=== PATIENT | male | born 1960 | race Caucasian/White ===

== ENCOUNTER 2018-12-28 12:15 | Emergency (ER) | payer MEDICAID ==
[~2018-12-28] VITALS: Ht 180.3 cm; Wt 82.0 kg
[2018-12-28 13:14] LABS: CLARITY URINE CLEAR (CLEAR); COLOR URINE YELLOW (YELLOW); KETONES URINE NEGATIVE (NEGATIVE); LEUKOCYTE ESTERASE URINE NEGATIVE (NEGATIVE); NITRITE URINE NEGATIVE (NEGATIVE); OCCULT BLOOD URINE NEGATIVE (NEGATIVE); PH URINE 5.5 (4.5-8.0); PROTEIN URINE 3+ (NEGATIVE); SPECIFIC GRAVITY URINE 1.026 (1.005-1.030)
[2018-12-28 13:22] LABS: BASOPHILS % 0.8 % (0.0-2.0); EOSINOPHILS % 1.8 % (0.0-5.0); HEMATOCRIT. 44.1 % (42.0-52.0); HEMOGLOBIN. 14.8 g/dL (14.0-18.0); LYMPHOCYTES % 20.9 % (20.0-50.0); MEAN CORPUSCULAR HEMOGLOBIN 31.8 pg (28.0-32.0); MEAN CORPUSCULAR VOLUME 95.1 fL (80.0-94.0); MEAN PLATELET VOLUME 8.3 fl (7.4-10.4); NEUTROPHILS % 66.5 % (40.0-76.0); PLATELET 229 x1000/uL (130-400); RED BLOOD CELL COUNT 4.64 mill/uL (4.7-6.1); RED CELL DISTRIBUTION WIDTH 14.7 % (11.6-14.6)
[2018-12-28 13:25] LABS: CHLORIDE 109 mEq/L (98-107)
[2018-12-28 13:27] LABS: INR 1.3; PARTIAL THROMBOPLASTIN TIME 31.6 sec (23.4-31.0); PROTHROMBIN TIME 13.3 sec (9.6-11.0)
[2018-12-28] MEDS ORDERED: FUROSEMIDE 20MG/2ML VIAL IVP ONE (15:00)
[2018-12-28 17:45] VITALS: BP 124/69
[2018-12-28] MEDS ORDERED: ENOXAPARIN 40MG/0.4ML SYR SUBCUT NR (17:45)
[2018-12-28] MEDS ORDERED: HYDROCODONE/ACETAMINOPHEN 5/325MG TABLET PO PRN (17:45)
[2018-12-28] MEDS ORDERED: DOCUSATE SODIUM 100MG CAPSULE PO PRN (17:45)
[2018-12-28] MEDS ORDERED: ACETAMINOPHEN 325MG TABLET PO PRN (17:45)
[2018-12-28] MEDS ORDERED: CLONIDINE 0.1MG TABLET PO PRN (17:45)
[2018-12-28] MEDS ORDERED: MORPHINE SULFATE 2 MG/ML CPJ (NOT FOR IM USE) IV PRN (17:45)
[2018-12-28] MEDS ORDERED: ONDANSETRON HCL 4MG/2ML INJ IV PRN (17:45)
[2018-12-28] MEDS ORDERED: IPRATROPIUM/ALBUTEROL 0.5-3(2.5)MG/3ML NEB NEB PRN (17:45)
[2018-12-28] MEDS ORDERED: MAGNESIUM/ALUMINUM HYDROXIDE/SIMETHICONE 30ML UDC PO PRN (17:45)
[2018-12-28] MEDS ORDERED: GUAIFENESIN 200MG/10ML SUGAR FREE UDC PO PRN (17:45)
[2018-12-28] MEDS ORDERED: FUROSEMIDE 40MG/4ML VIAL IV NR (18:30)
[2018-12-29] MEDS ORDERED: ASPIRIN 81MG EC TABLET PO SCH (09:00)
[2018-12-29] MEDS ORDERED: METOPROLOL TARTRATE 25MG TABLET PO SCH (09:00)
[2018-12-29] MEDS ORDERED: FUROSEMIDE 40MG/4ML VIAL IV SCH (09:00)
== END 2018-12-28 19:00 | disposition left against medical advice (07) ==
LOC: ER 12:15 → EDBEDREQ 15:46 → ER 19:00 → ENRESERV 20:25 → CANRESERV 20:25 → CANBEDREQ 12-29 02:33
DX: I50.9 Heart failure, unspecified (principal); F12.10 Cannabis abuse, uncomplicated; F17.210 Nicotine dependence, cigarettes, uncomplicated; Z71.6 Tobacco abuse counseling
CPT/HCPCS: 36415; 71045; 80053; 81003; 83605; 83690; 83880; 84484; 85025; 85610; 85730; 93005; 96374; 99284; 99406; J1940; J1650

== ENCOUNTER 2019-01-10 13:01 | Inpatient (IN) | payer MEDICAID, OTHER ==
[~2019-01-10] VITALS: Ht 172.7 cm; Wt 81.6 kg
[2019-01-10 14:03] LABS: HEMATOCRIT. 46.5 % (42.0-52.0); HEMOGLOBIN. 15.1 g/dL (14.0-18.0); MEAN CORPUSCULAR HEMOGLOBIN 30.7 pg (28.0-32.0); MEAN CORPUSCULAR VOLUME 94.4 fL (80.0-94.0); MEAN PLATELET VOLUME 8.1 fl (7.4-10.4); PLATELET 263 x1000/uL (130-400); RED BLOOD CELL COUNT 4.93 mill/uL (4.7-6.1); RED CELL DISTRIBUTION WIDTH 14.6 % (11.6-14.6)
[2019-01-10 14:04] LABS: CHLORIDE 106 mEq/L (98-107)
[2019-01-10 14:44] LABS: PLATELET ESTIMATE NORMAL
[2019-01-10] MEDS ORDERED: CEFEPIME 1,000 MG in DEXTROSE 5% WATER 50 ML IV STA (15:05)
[2019-01-10] MEDS ORDERED: VANCOMYCIN 1 G PREMIX 200 ML IV STA (15:05)
[2019-01-10] MEDS ORDERED: FUROSEMIDE 40MG/4ML VIAL IVP ONE (15:15)
[2019-01-10] MEDS ORDERED: ASPIRIN 81MG TABLET PO NR (16:00)
[2019-01-10 16:54] LABS: CLARITY URINE CLEAR (CLEAR); COLOR URINE YELLOW (YELLOW); KETONES URINE NEGATIVE (NEGATIVE); LEUKOCYTE ESTERASE URINE NEGATIVE (NEGATIVE); NITRITE URINE NEGATIVE (NEGATIVE); OCCULT BLOOD URINE NEGATIVE (NEGATIVE); PROTEIN URINE NEGATIVE (NEGATIVE); SPECIFIC GRAVITY URINE 1.024 (1.005-1.030); UROBILINOGEN URINE 0.2 E.U./dL (0.2-1.0)
[2019-01-10 17:09] LABS: OPIATES URINE SCREEN NEGATIVE (NEGATIVE)
[2019-01-10 17:10] LABS: *AMPHETAMINES SCREEN URINE PRESUMTIVE POSITIVE (NEGATIVE); *BARBITURATES SCREEN URINE NEGATIVE (NEGATIVE); *BENZODIAZEPINES SCREEN URINE NEGATIVE (NEGATIVE); *COCAINE SCREEN URINE NEGATIVE (NEGATIVE); CANNABINOID URINE SCREEN NEGATIVE (NEGATIVE); METHADONE URINE SCREEN NEGATIVE (NEGATIVE); PHENCYCLIDINE URINE SCREEN NEGATIVE (NEGATIVE)
[2019-01-10 17:37] LABS: HEPATITIS B SURFACE ANTIGEN NEGATIVE
[2019-01-10 18:07] LABS: HEPATITIS A AB IGM NEGATIVE (NEGATIVE)
[2019-01-10] MEDS ORDERED: PIPERACILLIN/TAZOBACTAM 3.375 G in DEXT 5% WATER 100 ML IV NR (18:45)
[2019-01-10] MEDS ORDERED: FUROSEMIDE 40MG/4ML VIAL IVP NR (18:45)
[2019-01-10] MEDS ORDERED: PIPERACILLIN/TAZ 3.375G PREMIX 50 ML IV NR (19:36)
[2019-01-10] MEDS ORDERED: IOHEXOL-350 100 ML BOTTLE ONE (20:46)
[2019-01-10 21:40] VITALS: BP 124/76
[2019-01-11] VITALS (16 sets, daily range): BP systolic 100–132; BP diastolic 49–90
[2019-01-11] MEDS ORDERED: ACETAMINOPHEN 650MG/20.3ML UDC PO PRN (02:30)
[2019-01-11] MEDS ORDERED: MORPHINE SULFATE 2 MG/ML CPJ (NOT FOR IM USE) IV PRN (02:45)
[2019-01-11] MEDS ORDERED: ACETAMINOPHEN 325MG TABLET PO PRN (02:45)
[2019-01-11] MEDS: PIPERACILLIN/TAZOBACTAM 3.375 G in DEXT 5% WATER 100 ML IV SCH ×4 (03:27→22:34)
[2019-01-11] MEDS ORDERED: VANCOMYCIN 750 MG PREMIX 150 ML IV SCH (04:00)
[2019-01-11] MEDS: FUROSEMIDE 40MG/4ML VIAL IVP SCH ×2 (06:07→17:58)
[2019-01-11 07:14] LABS: HEMATOCRIT. 42.1 % (42.0-52.0); HEMOGLOBIN. 13.9 g/dL (14.0-18.0); MEAN CORPUSCULAR HEMOGLOBIN 30.7 pg (28.0-32.0); MEAN CORPUSCULAR VOLUME 92.9 fL (80.0-94.0); MEAN PLATELET VOLUME 8.2 fl (7.4-10.4); PLATELET 207 x1000/uL (130-400); RED BLOOD CELL COUNT 4.53 mill/uL (4.7-6.1); RED CELL DISTRIBUTION WIDTH 14.5 % (11.6-14.6)
[2019-01-11 07:30] LABS: CHLORIDE 104 mEq/L (98-107)
[2019-01-11] MEDS: ENOXAPARIN 30MG/0.3ML SYR SUBCUT SCH ×2 (08:40→21:07)
[2019-01-11] MEDS ORDERED: POTASSIUM CHLORIDE 20MEQ TABLET SR PO NR (09:00)
[2019-01-11] MEDS ORDERED: PNEUMOCOCCAL 23-VAL P-SAC VAC 0.5 ML IM ONE (12:00)
[2019-01-11] MEDS ORDERED: INFLUENZA VIRUS VACCINE(AFLURIA) 0.5ML SYR IM ONE (12:00)
[2019-01-11] MEDS: DOCUSATE SODIUM 250MG CAPSULE PO SCH (12:30)
[2019-01-11] MEDS ORDERED: FUROSEMIDE 40MG/4ML VIAL IVP NR (14:30)
[2019-01-11] MEDS: LISINOPRIL 10MG TABLET PO SCH (15:13)
[2019-01-11] MEDS: VANCOMYCIN 1 G PREMIX 200 ML IV SCH (17:57)
[2019-01-11 19:59] LABS: PLATELET ESTIMATE NORMAL
[2019-01-11] MEDS: CARVEDILOL 3.125 MG TABLET PO SCH (21:06)
[2019-01-12] VITALS (12 sets, daily range): BP systolic 98–120; BP diastolic 44–99
[2019-01-12 04:13] LABS: CHLORIDE 102 mEq/L (98-107)
[2019-01-12 04:24] LABS: HEMATOCRIT. 45.1 % (42.0-52.0); HEMOGLOBIN. 14.8 g/dL (14.0-18.0); MEAN CORPUSCULAR HEMOGLOBIN 30.9 pg (28.0-32.0); MEAN CORPUSCULAR VOLUME 94.1 fL (80.0-94.0); MEAN PLATELET VOLUME 8.2 fl (7.4-10.4); PLATELET 195 x1000/uL (130-400); RED BLOOD CELL COUNT 4.79 mill/uL (4.7-6.1); RED CELL DISTRIBUTION WIDTH 14.6 % (11.6-14.6)
[2019-01-12] MEDS: PIPERACILLIN/TAZOBACTAM 3.375 G in DEXT 5% WATER 100 ML IV SCH ×4 (04:40→23:24)
[2019-01-12] MEDS: VANCOMYCIN 1 G PREMIX 200 ML IV SCH (05:46)
[2019-01-12] MEDS: ENOXAPARIN 30MG/0.3ML SYR SUBCUT SCH ×2 (09:04→21:12)
[2019-01-12] MEDS: POTASSIUM CHLORIDE 20MEQ TABLET SR PO SCH (09:04)
[2019-01-12] MEDS: FUROSEMIDE 40MG/4ML VIAL IVP SCH ×2 (09:04→16:57)
[2019-01-12] MEDS: LISINOPRIL 10MG TABLET PO SCH (09:05)
[2019-01-12] MEDS: CARVEDILOL 3.125 MG TABLET PO SCH ×2 (09:05→21:00)
[2019-01-12] MEDS: DOCUSATE SODIUM 250MG CAPSULE PO SCH (09:05)
[2019-01-12 12:58] LABS: PLATELET ESTIMATE NORMAL
[2019-01-12] MEDS: VANCOMYCIN 1250MG in DEXTROSE 5% WATER 250ML IV SCH (21:12)
[2019-01-13] VITALS (12 sets, daily range): BP systolic 98–140; BP diastolic 45–94
[2019-01-13] MEDS: PIPERACILLIN/TAZOBACTAM 3.375 G in DEXT 5% WATER 100 ML IV SCH ×4 (04:10→22:07)
[2019-01-13 06:43] LABS: BASOPHILS % 0.4 % (0.0-2.0); EOSINOPHILS % 2.5 % (0.0-5.0); HEMATOCRIT. 43.5 % (42.0-52.0); HEMOGLOBIN. 14.4 g/dL (14.0-18.0); LYMPHOCYTES % 7.2 % (20.0-50.0); MEAN CORPUSCULAR HEMOGLOBIN 30.9 pg (28.0-32.0); MEAN CORPUSCULAR VOLUME 93.3 fL (80.0-94.0); MEAN PLATELET VOLUME 8.2 fl (7.4-10.4); MONOCYTES % 9.9 % (2.0-8.0); PLATELET 214 x1000/uL (130-400); RED BLOOD CELL COUNT 4.66 mill/uL (4.7-6.1); RED CELL DISTRIBUTION WIDTH 14.7 % (11.6-14.6)
[2019-01-13 07:01] LABS: CHLORIDE 103 mEq/L (98-107)
[2019-01-13] MEDS: VANCOMYCIN 1250MG in DEXTROSE 5% WATER 250ML IV SCH ×2 (08:50→20:45)
[2019-01-13] MEDS: FUROSEMIDE 40MG/4ML VIAL IVP SCH ×2 (08:50→17:04)
[2019-01-13] MEDS: POTASSIUM CHLORIDE 20MEQ TABLET SR PO SCH (08:50)
[2019-01-13] MEDS: CARVEDILOL 3.125 MG TABLET PO SCH ×2 (08:51→20:45)
[2019-01-13] MEDS: DOCUSATE SODIUM 250MG CAPSULE PO SCH (08:51)
[2019-01-13] MEDS: LISINOPRIL 10MG TABLET PO SCH (08:51)
[2019-01-13] MEDS: ENOXAPARIN 30MG/0.3ML SYR SUBCUT SCH ×2 (09:00→20:37)
[2019-01-13] MEDS ORDERED: POTASSIUM CHLORIDE 20MEQ TABLET SR PO NR (14:30)
[2019-01-14] VITALS (13 sets, daily range): BP systolic 84–149; BP diastolic 27–95
[2019-01-14] MEDS: PIPERACILLIN/TAZOBACTAM 3.375 G in DEXT 5% WATER 100 ML IV SCH ×4 (04:12→21:40)
[2019-01-14] MEDS: FUROSEMIDE 40MG/4ML VIAL IVP SCH ×2 (06:35→17:09)
[2019-01-14 07:23] LABS: CHLORIDE 106 mEq/L (98-107)
[2019-01-14] MEDS: DOCUSATE SODIUM 250MG CAPSULE PO SCH (09:00)
[2019-01-14] MEDS: CARVEDILOL 3.125 MG TABLET PO SCH ×2 (09:03→21:39)
[2019-01-14] MEDS: POTASSIUM CHLORIDE 20MEQ TABLET SR PO SCH (09:03)
[2019-01-14] MEDS: LISINOPRIL 10MG TABLET PO SCH (09:03)
[2019-01-14] MEDS: ENOXAPARIN 30MG/0.3ML SYR SUBCUT SCH ×2 (09:04→21:39)
[2019-01-14] MEDS: VANCOMYCIN 1250MG in DEXTROSE 5% WATER 250ML IV SCH ×2 (09:58→21:38)
[2019-01-14] MEDS: ZOLPIDEM TARTRATE 5MG TABLET PO PRN (21:39)
[2019-01-15 00:47] VITALS: BP 99/64
[2019-01-15 04:00] VITALS: BP 111/76
[2019-01-15] MEDS: PIPERACILLIN/TAZOBACTAM 3.375 G in DEXT 5% WATER 100 ML IV SCH ×4 (04:01→21:45)
[2019-01-15 06:04] LABS: BASOPHILS % 0.4 % (0.0-2.0); EOSINOPHILS % 2.7 % (0.0-5.0); HEMATOCRIT. 46.6 % (42.0-52.0); HEMOGLOBIN. 15.5 g/dL (14.0-18.0); LYMPHOCYTES % 7.4 % (20.0-50.0); MEAN CORPUSCULAR VOLUME 93.4 fL (80.0-94.0); MEAN PLATELET VOLUME 8.5 fl (7.4-10.4); MONOCYTES % 11.6 % (2.0-8.0); NEUTROPHILS % 77.9 % (40.0-76.0); PLATELET 239 x1000/uL (130-400); RED BLOOD CELL COUNT 4.99 mill/uL (4.7-6.1); RED CELL DISTRIBUTION WIDTH 14.6 % (11.6-14.6)
[2019-01-15 06:35] LABS: CHLORIDE 105 mEq/L (98-107)
[2019-01-15 06:44] LABS: PHOSPHORUS 2.7 mg/dL (2.5-4.9)
[2019-01-15] MEDS: FUROSEMIDE 40MG/4ML VIAL IVP SCH ×2 (06:56→16:29)
[2019-01-15 07:59] VITALS: BP 126/88
[2019-01-15] MEDS: VANCOMYCIN 1250MG in DEXTROSE 5% WATER 250ML IV SCH ×2 (08:10→20:32)
[2019-01-15] MEDS: POTASSIUM CHLORIDE 20MEQ TABLET SR PO SCH (08:10)
[2019-01-15] MEDS: ENOXAPARIN 30MG/0.3ML SYR SUBCUT SCH (08:11)
[2019-01-15] MEDS: LISINOPRIL 10MG TABLET PO SCH (08:11)
[2019-01-15] MEDS: DOCUSATE SODIUM 250MG CAPSULE PO SCH (08:11)
[2019-01-15] MEDS: CARVEDILOL 3.125 MG TABLET PO SCH ×2 (08:25→20:32)
[2019-01-15 12:00] VITALS: BP 91/63
[2019-01-15 16:00] VITALS: BP 95/68
[2019-01-15 20:00] VITALS: BP 101/67
[2019-01-15] MEDS: ZOLPIDEM TARTRATE 5MG TABLET PO PRN (20:37)
[2019-01-16] VITALS: BP 105/80
[2019-01-16] MEDS: PIPERACILLIN/TAZOBACTAM 3.375 G in DEXT 5% WATER 100 ML IV SCH ×2 (03:39→10:29)
[2019-01-16 04:00] VITALS: BP 106/76
[2019-01-16] MEDS: FUROSEMIDE 40MG/4ML VIAL IVP SCH (06:21)
[2019-01-16 06:47] LABS: CHLORIDE 106 mEq/L (98-107)
[2019-01-16 08:00] VITALS: BP 108/72
[2019-01-16] MEDS: VANCOMYCIN 1250MG in DEXTROSE 5% WATER 250ML IV SCH (08:17)
[2019-01-16] MEDS: LISINOPRIL 10MG TABLET PO SCH (09:00)
[2019-01-16] MEDS ORDERED: ENOXAPARIN 40MG/0.4ML SYR SUBCUT SCH (09:00)
[2019-01-16] MEDS: CARVEDILOL 3.125 MG TABLET PO SCH (09:00)
[2019-01-16] MEDS: POTASSIUM CHLORIDE 20MEQ TABLET SR PO SCH (09:05)
[2019-01-16] MEDS: DOCUSATE SODIUM 250MG CAPSULE PO SCH (09:05)
[2019-01-16 12:00] VITALS: BP 88/58
[2019-01-16 13:25] VITALS: BP 113/66
[2019-01-16 16:00] VITALS: BP 90/61
== END 2019-01-16 16:48 | disposition home or self-care (01) | DRG 720 ==
LOC: ER 13:01 → 3WST 16:04 → EDBEDREQ 16:07 → ENRESERV 19:14 → 5WST 01-14 14:24
PROVIDERS: ADMIT Internal Medicine; ATTEND Internal Medicine
DX: A41.9 Sepsis, unspecified organism (principal); I50.41 Acute combined systolic (congestive) and diastolic (congestive) heart failure; J18.9 Pneumonia, unspecified organism; I42.9 Cardiomyopathy, unspecified; I11.0 Hypertensive heart disease with heart failure; E66.01 Morbid (severe) obesity due to excess calories; G62.9 Polyneuropathy, unspecified; K76.1 Chronic passive congestion of liver; F10.10 Alcohol abuse, uncomplicated; R74.0 Nonspecific elevation of levels of transaminase and lactic acid dehydrogenase [LDH]; F15.10 Other stimulant abuse, uncomplicated; F12.90 Cannabis use, unspecified, uncomplicated; L03.115 Cellulitis of right lower limb; F17.210 Nicotine dependence, cigarettes, uncomplicated; L03.116 Cellulitis of left lower limb; S90.821A Blister (nonthermal), right foot, initial encounter; S90.822A Blister (nonthermal), left foot, initial encounter; X58.XXXA Exposure to other specified factors, initial encounter; Y93.89 Activity, other specified; Y92.89 Other specified places as the place of occurrence of the external cause; Y99.8 Other external cause status; Z71.51 Drug abuse counseling and surveillance of drug abuser; Z88.4 Allergy status to anesthetic agent; Z68.27 Body mass index [BMI] 27.0-27.9, adult; Z71.6 Tobacco abuse counseling; Z71.3 Dietary counseling and surveillance
CPT/HCPCS: 36415; 71045; 71275; 76700; 80048; 80061; 80202; 80305; 81003; 83036; 83605; 83735; 83880; 84100; 84145; 84443; 84484; 85379; 86705; 86709; 86803; 87340; 90686; 90732; 93005; 93306; 93970; 97162; 99291; J0692; J1650; J1940; J2543; J3370; J7060; Q9967

== ENCOUNTER 2019-04-07 10:58 | Inpatient (IN) | payer SELFPAY ==
[~2019-04-07] VITALS: Ht 170.2 cm; Wt 95.8 kg
[2019-04-07 12:00] LABS: BASOPHILS % 0.5 % (0.0-2.0); EOSINOPHILS % 0.1 % (0.0-5.0); HEMATOCRIT. 44.7 % (42.0-52.0); HEMOGLOBIN. 14.6 g/dL (14.0-18.0); LYMPHOCYTES % 14.1 % (20.0-50.0); MEAN CORPUSCULAR HEMOGLOBIN 29.6 pg (28.0-32.0); MEAN CORPUSCULAR VOLUME 90.8 fL (80.0-94.0); MEAN PLATELET VOLUME 8.1 fl (7.4-10.4); MONOCYTES % 11.7 % (2.0-8.0); NEUTROPHILS % 73.6 % (40.0-76.0); PLATELET 221 x1000/uL (130-400); RED BLOOD CELL COUNT 4.92 mill/uL (4.7-6.1); RED CELL DISTRIBUTION WIDTH 17.7 % (11.6-14.6)
[2019-04-07 12:09] LABS: CHLORIDE 111 mEq/L (98-107)
[2019-04-07 13:07] LABS: BG BASE EXCESS -6.8 mmol/L (-2.0-2.0); BG BILEVEL POS AIRWAY PRESSURE 18/5; BG CARBOXYHEMOGLOBIN 1.1 % (0.5-1.5); BG DEOXYHEMOGLOBIN 0.1 % (0.0-5.0); BG FRACTION INSPIRED OXYGEN 100; BG HCO3 ACT 18.5 mmol/L (22.0-26.0); BG METHEMOGLOBIN 0.4 % (0.0-1.5); BG OXYGEN SATURATION 99.9 % (92.0-98.5); BG OXYHEMOGLOBIN 98.4 % (94.0-97.0); BG PCO2 36.6 mmHg (35.0-45.0); BG PH 7.322 (7.350-7.450); BG SAMPLE SITE RIGHT RADIAL; BG TOTAL HEMOGLOBIN 15.2 g/dL (12.0-18.0); BG VENT MODE MASK - BIPAP; BG VENT RATE 16 set
[2019-04-07] MEDS ORDERED: FUROSEMIDE 40MG/4ML VIAL IV ONE (13:15)
[2019-04-07] MEDS ORDERED: ASPIRIN 81MG TABLET PO ONE (13:15)
[2019-04-07] MEDS ORDERED: ONDANSETRON HCL 4MG/2ML INJ IV PRN (19:45)
[2019-04-07] MEDS ORDERED: DIPHENHYDRAMINE 50MG/ML VIAL IV PRN (19:45)
[2019-04-07] MEDS ORDERED: GUAIFENESIN 200MG/10ML SUGAR FREE UDC PO PRN (19:45)
[2019-04-07] MEDS ORDERED: IPRATROPIUM/ALBUTEROL 0.5-3(2.5)MG/3ML NEB NEB PRN (19:45)
[2019-04-07] MEDS ORDERED: CLONIDINE 0.1MG TABLET PO PRN (19:45)
[2019-04-07] MEDS ORDERED: ENOXAPARIN 40MG/0.4ML SYR SUBCUT SCH (19:45)
[2019-04-07 20:00] VITALS: BP 135/92
[2019-04-07] MEDS ORDERED: THIAMINE HCL 100 MG in SODIUM CHLORIDE 0.9% 49 ML IV NR (21:00)
[2019-04-07 22:00] VITALS: BP 141/91
[2019-04-07] MEDS: SODIUM CHLORIDE 0.9% INJ 3ML FLUSH IVF SCH (22:00)
[2019-04-07 22:01] VITALS: BP 153/76
[2019-04-07] MEDS: FUROSEMIDE 40MG/4ML VIAL IVP SCH (22:27)
[2019-04-07] MEDS: FAMOTIDINE 20MG TABLET PO SCH (22:28)
[2019-04-07] MEDS: ENOXAPARIN 30MG/0.3ML SYR SUBCUT SCH (22:28)
[2019-04-08] VITALS (13 sets, daily range): BP systolic 99–131; BP diastolic 56–84
[2019-04-08 00:01] LABS: *AMPHETAMINES SCREEN URINE NEGATIVE (NEGATIVE); *BARBITURATES SCREEN URINE NEGATIVE (NEGATIVE); *BENZODIAZEPINES SCREEN URINE NEGATIVE (NEGATIVE); *COCAINE SCREEN URINE NEGATIVE (NEGATIVE); METHADONE URINE SCREEN NEGATIVE (NEGATIVE)
[2019-04-08 00:03] LABS: CANNABINOID URINE SCREEN NEGATIVE (NEGATIVE); OPIATES URINE SCREEN NEGATIVE (NEGATIVE); PHENCYCLIDINE URINE SCREEN NEGATIVE (NEGATIVE)
[2019-04-08] MEDS: IPRATROPIUM/ALBUTEROL 0.5-3(2.5)MG/3ML NEB HHN SCH ×5 (00:57→21:13)
[2019-04-08] MEDS: SODIUM CHLORIDE 0.9% INJ 3ML FLUSH IVF SCH ×3 (05:52→21:55)
[2019-04-08 07:06] LABS: BASOPHILS % 0.6 % (0.0-2.0); EOSINOPHILS % 0.7 % (0.0-5.0); HEMATOCRIT. 40.4 % (42.0-52.0); HEMOGLOBIN. 13.2 g/dL (14.0-18.0); LYMPHOCYTES % 13.9 % (20.0-50.0); MEAN CORPUSCULAR HEMOGLOBIN 29.7 pg (28.0-32.0); MEAN CORPUSCULAR VOLUME 90.6 fL (80.0-94.0); MEAN PLATELET VOLUME 8.2 fl (7.4-10.4); MONOCYTES % 13.1 % (2.0-8.0); NEUTROPHILS % 71.7 % (40.0-76.0); PLATELET 212 x1000/uL (130-400); RED BLOOD CELL COUNT 4.46 mill/uL (4.7-6.1); RED CELL DISTRIBUTION WIDTH 17.6 % (11.6-14.6)
[2019-04-08 07:10] LABS: CHLORIDE 108 mEq/L (98-107)
[2019-04-08] MEDS: ENOXAPARIN 30MG/0.3ML SYR SUBCUT SCH ×2 (07:25→21:55)
[2019-04-08] MEDS: FUROSEMIDE 40MG/4ML VIAL IVP SCH ×2 (07:25→16:49)
[2019-04-08] MEDS: CARVEDILOL 3.125 MG TABLET PO SCH ×2 (07:26→21:00)
[2019-04-08 07:34] LABS: PHOSPHORUS 4.3 mg/dL (2.5-4.9)
[2019-04-08] MEDS: LISINOPRIL 10MG TABLET PO SCH (09:00)
[2019-04-08] MEDS: ACETAMINOPHEN 325MG TABLET PO PRN ×2 (10:27→17:45)
[2019-04-08] MEDS: POTASSIUM CHLORIDE 20MEQ TABLET SR PO SCH (13:15)
[2019-04-08] MEDS ORDERED: MAGNESIUM 2 G PREMIX 50 ML IV SCH (14:00)
[2019-04-08] MEDS ORDERED: VANCOMYCIN 2,000 MG in DEXT 5% WATER 500 ML IV SCH (15:00)
[2019-04-08] MEDS: HYDROCODONE/APAP 7.5/325MG 1 TAB TABLET PO PRN (18:32)
[2019-04-08] MEDS: FAMOTIDINE 20MG TABLET PO SCH (21:54)
[2019-04-09] VITALS (13 sets, daily range): BP systolic 96–113; BP diastolic 58–83
[2019-04-09] MEDS: IPRATROPIUM/ALBUTEROL 0.5-3(2.5)MG/3ML NEB HHN SCH ×3 (01:06→16:56)
[2019-04-09] MEDS: HYDROCODONE/APAP 7.5/325MG 1 TAB TABLET PO PRN (06:07)
[2019-04-09] MEDS: VANCOMYCIN 1250MG in DEXTROSE 5% WATER 250ML IV SCH ×2 (06:08→23:48)
[2019-04-09] MEDS: SODIUM CHLORIDE 0.9% INJ 3ML FLUSH IVF SCH ×3 (06:09→20:49)
[2019-04-09] MEDS: FUROSEMIDE 40MG/4ML VIAL IVP SCH ×3 (06:20→20:56)
[2019-04-09] MEDS: POTASSIUM CHLORIDE 20MEQ TABLET SR PO SCH ×2 (08:12→16:11)
[2019-04-09] MEDS: ENOXAPARIN 30MG/0.3ML SYR SUBCUT SCH ×2 (08:13→20:49)
[2019-04-09] MEDS: CARVEDILOL 3.125 MG TABLET PO SCH ×2 (08:13→20:47)
[2019-04-09] MEDS: LISINOPRIL 10MG TABLET PO SCH (08:13)
[2019-04-09 08:50] LABS: BASOPHILS % 0.6 % (0.0-2.0); EOSINOPHILS % 4.5 % (0.0-5.0); HEMATOCRIT. 40.3 % (42.0-52.0); HEMOGLOBIN. 13.3 g/dL (14.0-18.0); LYMPHOCYTES % 10.6 % (20.0-50.0); MEAN CORPUSCULAR HEMOGLOBIN 29.7 pg (28.0-32.0); MEAN CORPUSCULAR VOLUME 90.1 fL (80.0-94.0); MEAN PLATELET VOLUME 8.1 fl (7.4-10.4); MONOCYTES % 8.1 % (2.0-8.0); NEUTROPHILS % 76.2 % (40.0-76.0); PLATELET 194 x1000/uL (130-400); RED BLOOD CELL COUNT 4.48 mill/uL (4.7-6.1); RED CELL DISTRIBUTION WIDTH 17.5 % (11.6-14.6)
[2019-04-09 09:07] LABS: PHOSPHORUS 2.9 mg/dL (2.5-4.9)
[2019-04-09] MEDS ORDERED: TRAMADOL 50MG TABLET PO PRN (10:00)
[2019-04-09] MEDS ORDERED: MAGNESIUM 1 G PREMIX 100 ML IV SCH (12:00)
[2019-04-09] MEDS: FAMOTIDINE 40MG TABLET PO SCH (20:48)
[2019-04-10] VITALS (10 sets, daily range): BP systolic 89–139; BP diastolic 47–87
[2019-04-10] MEDS: IPRATROPIUM/ALBUTEROL 0.5-3(2.5)MG/3ML NEB HHN SCH ×4 (02:20→20:37)
[2019-04-10] MEDS: ACETAMINOPHEN 325MG TABLET PO PRN (02:45)
[2019-04-10] MEDS: FUROSEMIDE 40MG/4ML VIAL IVP SCH ×2 (06:19→17:58)
[2019-04-10] MEDS: SODIUM CHLORIDE 0.9% INJ 3ML FLUSH IVF SCH ×3 (06:19→20:39)
[2019-04-10 07:37] LABS: CHLORIDE 101 mEq/L (98-107)
[2019-04-10 07:47] LABS: PHOSPHORUS 2.4 mg/dL (2.5-4.9)
[2019-04-10] MEDS: POTASSIUM CHLORIDE 20MEQ TABLET SR PO SCH ×2 (09:51→17:58)
[2019-04-10] MEDS: CARVEDILOL 3.125 MG TABLET PO SCH ×2 (09:52→20:44)
[2019-04-10] MEDS: LISINOPRIL 10MG TABLET PO SCH (09:52)
[2019-04-10] MEDS: ENOXAPARIN 30MG/0.3ML SYR SUBCUT SCH ×2 (09:53→20:39)
[2019-04-10] MEDS ORDERED: POTASSIUM PHOS,M-BASIC-D-BASIC 15 MMOL in DEXT 5% WATER 245 ML IV SCH (13:00)
[2019-04-10] MEDS: KETOROLAC 30MG/ML VIAL IV PRN ×2 (14:46→22:20)
[2019-04-10] MEDS: VANCOMYCIN 1250MG in DEXTROSE 5% WATER 250ML IV SCH (17:58)
[2019-04-10] MEDS: FAMOTIDINE 40MG TABLET PO SCH (20:36)
[2019-04-11] VITALS (8 sets, daily range): BP systolic 97–129; BP diastolic 54–86
[2019-04-11] MEDS: TEMAZEPAM 15MG CAPSULE PO PRN ×2 (01:20→01:38)
[2019-04-11] MEDS: IPRATROPIUM/ALBUTEROL 0.5-3(2.5)MG/3ML NEB HHN SCH ×3 (01:55→13:10)
[2019-04-11 05:51] LABS: CHLORIDE 102 mEq/L (98-107)
[2019-04-11] MEDS: POTASSIUM CHLORIDE 20MEQ TABLET SR PO SCH (09:22)
[2019-04-11] MEDS: FUROSEMIDE 40MG/4ML VIAL IVP SCH (09:22)
[2019-04-11] MEDS: CARVEDILOL 3.125 MG TABLET PO SCH (09:22)
[2019-04-11] MEDS: ENOXAPARIN 30MG/0.3ML SYR SUBCUT SCH (09:23)
[2019-04-11] MEDS: LISINOPRIL 10MG TABLET PO SCH (09:23)
[2019-04-11] MEDS: SODIUM CHLORIDE 0.9% INJ 3ML FLUSH IVF SCH (09:24)
[2019-04-11] MEDS ORDERED: VANCOMYCIN 1 G PREMIX 200 ML IV SCH (14:00)
[2019-04-11] MEDS ORDERED: CARVEDILOL 6.25 MG TABLET PO SCH (21:00)
== END 2019-04-11 15:12 | disposition home or self-care (01) | DRG 194 ==
LOC: ER 10:58 → EDBEDREQ 13:18 → EDBEDREQSVC 13:53 → ENRESERV 18:00 → 3WST 19:07
PROVIDERS: ADMIT Internal Medicine; ATTEND Internal Medicine
PROC: 5A09357 Assistance with Respiratory Ventilation, Less than 24 Consecutive Hours, Continuous Positive Airway Pressure (ICD-10-PCS; principal; 2019-04-07)
DX: I11.0 Hypertensive heart disease with heart failure (principal); J96.91 Respiratory failure, unspecified with hypoxia; L03.115 Cellulitis of right lower limb; E83.42 Hypomagnesemia; E66.01 Morbid (severe) obesity due to excess calories; E87.1 Hypo-osmolality and hyponatremia; L03.116 Cellulitis of left lower limb; I50.23 Acute on chronic systolic (congestive) heart failure; F10.10 Alcohol abuse, uncomplicated; F17.210 Nicotine dependence, cigarettes, uncomplicated; G62.9 Polyneuropathy, unspecified; S90.822A Blister (nonthermal), left foot, initial encounter; F19.10 Other psychoactive substance abuse, uncomplicated; S90.821A Blister (nonthermal), right foot, initial encounter; X58.XXXA Exposure to other specified factors, initial encounter; Y93.89 Activity, other specified; Z91.19 Patient's noncompliance with other medical treatment and regimen; Y92.89 Other specified places as the place of occurrence of the external cause; Z88.8 Allergy status to other drugs, medicaments and biological substances; Y99.8 Other external cause status; Z71.3 Dietary counseling and surveillance; Z68.33 Body mass index [BMI] 33.0-33.9, adult
CPT/HCPCS: 36415; 36600; 71045; 80048; 80053; 80202; 80305; 82375; 82805; 83735; 83880; 84100; 84484; 85025; 93005; 93970; 94640; 94660; 96374; 97162; 99291; A6261; J1650; J1885; J1940; J2405; J3370; J3411; J3475; J3490; J7060; J7620

== ENCOUNTER 2020-12-07 00:28 | Inpatient (IN) | payer MEDICAID, OTHER ==
[~2020-12-07] VITALS: Ht 177.8 cm; Wt 90.7 kg
[2020-12-07] MEDS ORDERED: MORPHINE SULFATE 4 MG/ML CPJ (NOT FOR IM USE) IV STA (01:11)
[2020-12-07] MEDS ORDERED: METHYLPREDNISOLONE SOD SUCC 125 MG/2 ML VIAL IV ONE (01:15)
[2020-12-07] MEDS ORDERED: VANCOMYCIN 1 G PREMIX 200 ML IV ONE (01:15)
[2020-12-07] MEDS ORDERED: FUROSEMIDE 100MG/10ML VIAL IVP ONE (01:15)
[2020-12-07] MEDS ORDERED: IPRATROPIUM/ALBUTEROL 0.5-3(2.5)MG/3ML NEB HHN ONE (01:15)
[2020-12-07] MEDS ORDERED: LEVOFLOXACIN 750MG PREMIX 150 ML IV ONE (01:15)
[2020-12-07 01:38] LABS: BASOPHILS % 0.7 % (0.0-2.0); EOSINOPHILS % 1.6 % (0.0-5.0); HEMATOCRIT. 45.1 % (42.0-52.0); HEMOGLOBIN. 14.9 g/dL (14.0-18.0); LYMPHOCYTES % 11.6 % (20.0-50.0); MEAN CORPUSCULAR HEMOGLOBIN 30.8 pg (28.0-32.0); MEAN CORPUSCULAR VOLUME 93.2 fL (80.0-94.0); MEAN PLATELET VOLUME 8.9 fl (7.4-10.4); MONOCYTES % 14.2 % (2.0-8.0); NEUTROPHILS % 71.9 % (40.0-76.0); PLATELET 194 x1000/uL (130-400); RED BLOOD CELL COUNT 4.84 mill/uL (4.7-6.1)
[2020-12-07 01:44] LABS: CHLORIDE 104 mEq/L (98-107)
[2020-12-07 01:54] LABS: INR 1.5; PROTHROMBIN TIME 15.2 sec (9.6-11.0)
[2020-12-07 02:45] LABS: CLARITY URINE CLEAR (CLEAR); COLOR URINE DARK YELLOW (YELLOW); KETONES URINE NEGATIVE (NEGATIVE); LEUKOCYTE ESTERASE URINE NEGATIVE (NEGATIVE); NITRITE URINE NEGATIVE (NEGATIVE); OCCULT BLOOD URINE NEGATIVE (NEGATIVE); PROTEIN URINE 2+ (NEGATIVE); SPECIFIC GRAVITY URINE 1.018 (1.005-1.030)
[2020-12-07 02:56] LABS: *AMPHETAMINES SCREEN URINE PRESUMTIVE POSITIVE (NEGATIVE); *BARBITURATES SCREEN URINE NEGATIVE (NEGATIVE)
[2020-12-07 02:57] LABS: *BENZODIAZEPINES SCREEN URINE NEGATIVE (NEGATIVE); *COCAINE SCREEN URINE NEGATIVE (NEGATIVE); CANNABINOID URINE SCREEN NEGATIVE (NEGATIVE); METHADONE URINE SCREEN NEGATIVE (NEGATIVE); OPIATES URINE SCREEN NEGATIVE (NEGATIVE); PHENCYCLIDINE URINE SCREEN NEGATIVE (NEGATIVE)
[2020-12-07] MEDS ORDERED: POTASSIUM CHLORIDE 20MEQ TABLET SR PO NR (15:30)
[2020-12-07] MEDS ORDERED: CLONIDINE 0.1MG TABLET PO PRN (15:45)
[2020-12-07] MEDS ORDERED: ACETAMINOPHEN 325MG TABLET PO PRN (15:45)
[2020-12-07] MEDS ORDERED: IPRATROPIUM/ALBUTEROL 0.5-3(2.5)MG/3ML NEB HHN PRN (15:45)
[2020-12-07] MEDS ORDERED: ONDANSETRON HCL 4MG/2ML INJ IV PRN (15:45)
[2020-12-07] MEDS: HYDROCODONE/ACETAMINOPHEN 5/325MG TABLET PO PRN ×2 (15:55→22:46)
[2020-12-07] MEDS: FUROSEMIDE 40MG TABLET PO SCH (15:55)
[2020-12-07] MEDS: METHYLPREDNISOLONE SOD SUCC 40 MG/ML VIAL IV SCH ×2 (15:55→22:43)
[2020-12-07] MEDS: POLYETHYLENE GLYCOL 3350 (17GM) 1 DOSE PACK PO SCH (17:07)
[2020-12-07] MEDS ORDERED: NALOXONE HCL 0.4MG/ML VIAL IV PRN (19:45)
[2020-12-07 21:10] VITALS: BP 111/70
[2020-12-08] VITALS: BP 114/70
[2020-12-08] MEDS: GUAIFENESIN 200MG/10ML SUGAR FREE UDC PO PRN (02:45)
[2020-12-08] MEDS: DOCUSATE SODIUM 100MG CAPSULE PO PRN ×2 (03:24→15:04)
[2020-12-08 04:00] VITALS: BP 108/76
[2020-12-08 05:21] LABS: HEMATOCRIT. 45.2 % (42.0-52.0); HEMOGLOBIN. 14.6 g/dL (14.0-18.0); MEAN CORPUSCULAR HEMOGLOBIN 30.2 pg (28.0-32.0); MEAN CORPUSCULAR VOLUME 93.7 fL (80.0-94.0); MEAN PLATELET VOLUME 9.3 fl (7.4-10.4); PLATELET 182 x1000/uL (130-400); RED BLOOD CELL COUNT 4.83 mill/uL (4.7-6.1); RED CELL DISTRIBUTION WIDTH 18.2 % (11.6-14.6)
[2020-12-08] MEDS: METHYLPREDNISOLONE SOD SUCC 40 MG/ML VIAL IV SCH ×2 (06:31→15:04)
[2020-12-08 08:05] VITALS: BP 117/85
[2020-12-08] MEDS: POLYETHYLENE GLYCOL 3350 (17GM) 1 DOSE PACK PO SCH (08:40)
[2020-12-08] MEDS: FUROSEMIDE 40MG TABLET PO SCH (08:40)
[2020-12-08 11:40] VITALS: BP 115/72
[2020-12-08] MEDS: HYDROCODONE/ACETAMINOPHEN 5/325MG TABLET PO PRN (15:04)
[2020-12-08 16:08] VITALS: BP 117/85
[2020-12-08] MEDS: CALCIUM CARBONATE 500MG TABLET CHEW PO PRN (16:41)
[2020-12-08] MEDS ORDERED: FUROSEMIDE 40MG/4ML VIAL IVP SCH (17:00)
[2020-12-08] MEDS: FUROSEMIDE 40MG/4ML VIAL IVP SCH (17:26)
[2020-12-08] MEDS: ENOXAPARIN 30MG/0.3ML SYR SUBCUT SCH (17:26)
[2020-12-08 20:19] VITALS: BP 118/79
[2020-12-08] MEDS: LORAZEPAM 0.5MG TABLET PO PRN (21:54)
[2020-12-09 00:10] VITALS: BP 118/88
[2020-12-09] MEDS: METHYLPREDNISOLONE SOD SUCC 40 MG/ML VIAL IV SCH ×4 (00:32→23:26)
[2020-12-09] MEDS: CALCIUM CARBONATE 500MG TABLET CHEW PO PRN (00:32)
[2020-12-09] MEDS: DOCUSATE SODIUM 100MG CAPSULE PO PRN (02:18)
[2020-12-09 03:46] LABS: PLATELET ESTIMATE NORMAL
[2020-12-09 04:00] VITALS: BP 119/77
[2020-12-09] MEDS: ENOXAPARIN 30MG/0.3ML SYR SUBCUT SCH ×2 (05:11→17:13)
[2020-12-09] MEDS: FUROSEMIDE 40MG/4ML VIAL IVP SCH ×2 (05:11→17:13)
[2020-12-09 06:03] LABS: INR 1.4; PROTHROMBIN TIME 15.1 sec (9.6-11.0)
[2020-12-09 06:43] LABS: HEMATOCRIT. 45.8 % (42.0-52.0); HEMOGLOBIN. 14.3 g/dL (14.0-18.0); MEAN CORPUSCULAR HEMOGLOBIN 29.9 pg (28.0-32.0); MEAN CORPUSCULAR VOLUME 95.7 fL (80.0-94.0); MEAN PLATELET VOLUME 9.1 fl (7.4-10.4); PLATELET 174 x1000/uL (130-400); RED BLOOD CELL COUNT 4.78 mill/uL (4.7-6.1); RED CELL DISTRIBUTION WIDTH 17.9 % (11.6-14.6)
[2020-12-09 06:44] LABS: PHOSPHORUS 4.4 mg/dL (2.5-4.9)
[2020-12-09 08:00] VITALS: BP 115/74
[2020-12-09] MEDS: POLYETHYLENE GLYCOL 3350 (17GM) 1 DOSE PACK PO SCH (08:04)
[2020-12-09 11:21] LABS: BG BASE EXCESS 4.4 mmol/L (-2.0-2.0); BG DEOXYHEMOGLOBIN 5.2 % (0.0-5.0); BG FRACTION INSPIRED OXYGEN 40; BG HCO3 ACT 32.6 mmol/L (22.0-26.0); BG METHEMOGLOBIN 0.5 % (0.0-1.5); BG OXYGEN SATURATION 94.7 % (92.0-98.5); BG OXYHEMOGLOBIN 93.3 % (94.0-97.0); BG PCO2 64.5 mmHg (35.0-45.0); BG PH 7.321 (7.350-7.450); BG PO2 79.5 mmHg (75.0-100.0); BG SAMPLE SITE LEFT RADIAL; BG TOTAL HEMOGLOBIN 14.7 g/dL (12.0-18.0); BG VENT MODE NASAL CANNULA
[2020-12-09 12:00] VITALS: BP 118/82
[2020-12-09] MEDS ORDERED: SODIUM POLYSTYRENE SULFONATE 15 G/60 ML BOT PO NR (12:00)
[2020-12-09] MEDS: LORAZEPAM 0.5MG TABLET PO PRN (15:59)
[2020-12-09] MEDS: HYDROCODONE/ACETAMINOPHEN 5/325MG TABLET PO PRN (15:59)
[2020-12-09 16:00] VITALS: BP 127/85
[2020-12-09 16:18] LABS: PLATELET ESTIMATE NORMAL
[2020-12-09 20:00] VITALS: BP 117/75
[2020-12-10] VITALS: BP 111/79
[2020-12-10] MEDS: LORAZEPAM 0.5MG TABLET PO PRN ×3 (03:28→18:09)
[2020-12-10 04:00] VITALS: BP 123/87
[2020-12-10] MEDS: ENOXAPARIN 30MG/0.3ML SYR SUBCUT SCH ×2 (05:49→18:09)
[2020-12-10] MEDS: FUROSEMIDE 40MG/4ML VIAL IVP SCH ×2 (05:49→18:09)
[2020-12-10] MEDS: METHYLPREDNISOLONE SOD SUCC 40 MG/ML VIAL IV SCH ×3 (06:40→23:20)
[2020-12-10 06:52] LABS: HEMATOCRIT. 43.8 % (42.0-52.0); HEMOGLOBIN. 13.8 g/dL (14.0-18.0); MEAN CORPUSCULAR HEMOGLOBIN 29.6 pg (28.0-32.0); MEAN CORPUSCULAR VOLUME 94.3 fL (80.0-94.0); MEAN PLATELET VOLUME 9.2 fl (7.4-10.4); PLATELET 159 x1000/uL (130-400); RED BLOOD CELL COUNT 4.64 mill/uL (4.7-6.1); RED CELL DISTRIBUTION WIDTH 18.2 % (11.6-14.6)
[2020-12-10 08:00] VITALS: BP 135/84
[2020-12-10 08:14] LABS: PHOSPHORUS 3.3 mg/dL (2.5-4.9)
[2020-12-10] MEDS: POLYETHYLENE GLYCOL 3350 (17GM) 1 DOSE PACK PO SCH (08:51)
[2020-12-10] MEDS: CALCIUM CARBONATE 500MG TABLET CHEW PO PRN (08:51)
[2020-12-10] MEDS: DOCUSATE SODIUM 100MG CAPSULE PO PRN (08:51)
[2020-12-10 16:00] VITALS: BP 140/86
[2020-12-10 16:50] LABS: PLATELET ESTIMATE NORMAL
[2020-12-10] MEDS: HYDROCODONE/ACETAMINOPHEN 5/325MG TABLET PO PRN ×2 (18:27→21:45)
[2020-12-10 20:00] VITALS: BP 139/88
[2020-12-10] MEDS: METOPROLOL TARTRATE 25MG TABLET PO SCH (21:21)
[2020-12-10] MEDS ORDERED: MAGNESIUM 2 G PREMIX 50 ML IV NR (23:00)
[2020-12-11] VITALS: BP 105/78
[2020-12-11 04:00] VITALS: BP 128/98
[2020-12-11] MEDS: GUAIFENESIN 200MG/10ML SUGAR FREE UDC PO PRN (05:13)
[2020-12-11] MEDS: IPRATROPIUM/ALBUTEROL 0.5-3(2.5)MG/3ML NEB HHN SCH ×4 (05:15→21:43)
[2020-12-11] MEDS: FUROSEMIDE 40MG/4ML VIAL IVP SCH ×2 (06:01→18:20)
[2020-12-11] MEDS: ENOXAPARIN 30MG/0.3ML SYR SUBCUT SCH ×2 (06:02→18:20)
[2020-12-11] MEDS: METHYLPREDNISOLONE SOD SUCC 40 MG/ML VIAL IV SCH ×3 (06:21→22:38)
[2020-12-11 07:29] LABS: HEMATOCRIT. 46.6 % (42.0-52.0); HEMOGLOBIN. 14.6 g/dL (14.0-18.0); MEAN CORPUSCULAR HEMOGLOBIN 29.7 pg (28.0-32.0); MEAN CORPUSCULAR VOLUME 95.1 fL (80.0-94.0); MEAN PLATELET VOLUME 9.5 fl (7.4-10.4); PLATELET 154 x1000/uL (130-400); RED CELL DISTRIBUTION WIDTH 18.2 % (11.6-14.6)
[2020-12-11 08:00] VITALS: BP 135/97
[2020-12-11 08:04] LABS: CHLORIDE 97 mEq/L (98-107)
[2020-12-11 08:12] LABS: PHOSPHORUS 2.8 mg/dL (2.5-4.9)
[2020-12-11] MEDS: METOPROLOL TARTRATE 25MG TABLET PO SCH ×2 (09:17→21:00)
[2020-12-11] MEDS: POLYETHYLENE GLYCOL 3350 (17GM) 1 DOSE PACK PO SCH (09:17)
[2020-12-11] MEDS: HYDROCODONE/ACETAMINOPHEN 5/325MG TABLET PO PRN (09:18)
[2020-12-11] MEDS: LORAZEPAM 0.5MG TABLET PO PRN ×2 (11:53→22:05)
[2020-12-11 12:00] VITALS: BP 120/93
[2020-12-11 16:00] VITALS: BP 169/95
[2020-12-11 17:21] LABS: PLATELET ESTIMATE NORMAL
[2020-12-11 20:41] VITALS: BP 106/68
[2020-12-12] VITALS (9 sets, daily range): BP systolic 114–158; BP diastolic 85–108
[2020-12-12] MEDS: IPRATROPIUM/ALBUTEROL 0.5-3(2.5)MG/3ML NEB HHN SCH ×4 (01:54→21:08)
[2020-12-12] MEDS: LORAZEPAM 0.5MG TABLET PO PRN (02:13)
[2020-12-12] MEDS: METHYLPREDNISOLONE SOD SUCC 40 MG/ML VIAL IV SCH (06:28)
[2020-12-12] MEDS: ENOXAPARIN 30MG/0.3ML SYR SUBCUT SCH ×2 (06:28→17:10)
[2020-12-12] MEDS: FUROSEMIDE 40MG/4ML VIAL IVP SCH (06:28)
[2020-12-12 07:29] LABS: HEMATOCRIT. 46.3 % (42.0-52.0); HEMOGLOBIN. 14.8 g/dL (14.0-18.0); MEAN CORPUSCULAR HEMOGLOBIN 29.6 pg (28.0-32.0); MEAN CORPUSCULAR VOLUME 92.4 fL (80.0-94.0); MEAN PLATELET VOLUME 8.7 fl (7.4-10.4); PLATELET 151 x1000/uL (130-400); RED BLOOD CELL COUNT 5.01 mill/uL (4.7-6.1); RED CELL DISTRIBUTION WIDTH 17.8 % (11.6-14.6)
[2020-12-12 08:13] LABS: PHOSPHORUS 2.1 mg/dL (2.5-4.9)
[2020-12-12] MEDS: METOPROLOL TARTRATE 25MG TABLET PO SCH (08:57)
[2020-12-12] MEDS: POLYETHYLENE GLYCOL 3350 (17GM) 1 DOSE PACK PO SCH (08:58)
[2020-12-12] MEDS: HYDROCODONE/ACETAMINOPHEN 5/325MG TABLET PO PRN (08:58)
[2020-12-12 09:15] LABS: BG BASE EXCESS 9.7 mmol/L (-2.0-2.0); BG DEOXYHEMOGLOBIN 6.1 % (0.0-5.0); BG HCO3 ACT 37.6 mmol/L (22.0-26.0); BG METHEMOGLOBIN 0.2 % (0.0-1.5); BG OXYGEN SATURATION 93.8 % (92.0-98.5); BG OXYHEMOGLOBIN 92.7 % (94.0-97.0); BG PCO2 64.1 mmHg (35.0-45.0); BG PH 7.386 (7.350-7.450); BG PO2 74.8 mmHg (75.0-100.0); BG SAMPLE SITE RIGHT RADIAL; BG TOTAL HEMOGLOBIN 15.5 g/dL (12.0-18.0); BG VENT MODE NASAL CANNULA
[2020-12-12] MEDS ORDERED: SODIUM PHOS,M-BASIC-D-BASIC 15 MM in DEXT 5% WATER 245 ML IV NR (11:30)
[2020-12-12] MEDS: CHLORDIAZEPOXIDE 10MG CAPSULE PO SCH ×2 (13:26→21:54)
[2020-12-12] MEDS: CHLORDIAZEPOXIDE 5 MG CAPSULE PO SCH ×2 (13:27→21:54)
[2020-12-12 14:57] LABS: PLATELET ESTIMATE NORMAL
[2020-12-12] MEDS: LORAZEPAM 2MG/ML CPJ IV PRN ×3 (15:08→23:15)
[2020-12-12] MEDS: FAMOTIDINE 20MG TABLET PO SCH (20:51)
[2020-12-12] MEDS: METOPROLOL TARTRATE 50MG TABLET PO SCH (20:52)
[2020-12-13] VITALS (12 sets, daily range): BP systolic 117–144; BP diastolic 61–97
[2020-12-13] MEDS: IPRATROPIUM/ALBUTEROL 0.5-3(2.5)MG/3ML NEB HHN SCH ×4 (02:27→20:51)
[2020-12-13] MEDS: CHLORDIAZEPOXIDE 10MG CAPSULE PO SCH ×4 (07:17→21:54)
[2020-12-13] MEDS: ENOXAPARIN 30MG/0.3ML SYR SUBCUT SCH ×2 (07:17→17:22)
[2020-12-13] MEDS: CHLORDIAZEPOXIDE 5 MG CAPSULE PO SCH ×4 (07:18→21:55)
[2020-12-13 07:30] LABS: HEMATOCRIT. 47.2 % (42.0-52.0); HEMOGLOBIN. 15.1 g/dL (14.0-18.0); MEAN CORPUSCULAR HEMOGLOBIN 29.7 pg (28.0-32.0); MEAN CORPUSCULAR VOLUME 92.6 fL (80.0-94.0); MEAN PLATELET VOLUME 9.6 fl (7.4-10.4); PLATELET 155 x1000/uL (130-400); RED CELL DISTRIBUTION WIDTH 17.6 % (11.6-14.6)
[2020-12-13] MEDS: PREDNISONE 20MG TABLET PO SCH ×2 (08:17→16:30)
[2020-12-13] MEDS: FAMOTIDINE 20MG TABLET PO SCH ×2 (08:17→21:54)
[2020-12-13 08:22] LABS: PHOSPHORUS 4.2 mg/dL (2.5-4.9)
[2020-12-13] MEDS: METOPROLOL TARTRATE 50MG TABLET PO SCH ×2 (08:22→21:54)
[2020-12-13] MEDS: FUROSEMIDE 40MG/4ML VIAL IVP SCH (08:33)
[2020-12-13] MEDS: POLYETHYLENE GLYCOL 3350 (17GM) 1 DOSE PACK PO SCH (08:46)
[2020-12-13 11:05] LABS: PLATELET ESTIMATE NORMAL
[2020-12-13] MEDS: FOLIC ACID 1MG TABLET PO SCH (11:07)
[2020-12-13] MEDS: MULTIVITAMINS,THER W-MINERALS TABLET PO SCH (11:07)
[2020-12-13 11:27] LABS: BG BASE EXCESS 10.1 mmol/L (-2.0-2.0); BG DEOXYHEMOGLOBIN 2.7 % (0.0-5.0); BG FRACTION INSPIRED OXYGEN 40; BG METHEMOGLOBIN 0.4 % (0.0-1.5); BG OXYGEN SATURATION 97.3 % (92.0-98.5); BG OXYHEMOGLOBIN 95.9 % (94.0-97.0); BG PCO2 64.3 mmHg (35.0-45.0); BG PH 7.389 (7.350-7.450); BG PO2 99.3 mmHg (75.0-100.0); BG SAMPLE SITE RIGHT RADIAL; BG TOTAL HEMOGLOBIN 15.4 g/dL (12.0-18.0); BG VENT MODE NASAL CANNULA
[2020-12-13] MEDS ORDERED: THIAMINE HCL 100 MG in SODIUM CHLORIDE 0.9% 49 ML IV SCH (12:00)
[2020-12-13 12:10] LABS: FOLIC ACID (FOLATE) SERUM >20 ng/mL ng/mL (>5.38)
[2020-12-13 12:21] LABS: VITAMIN B12 SERUM 1813 pg/mL (211-911)
[2020-12-13] MEDS: GUAIFENESIN 200MG/10ML SUGAR FREE UDC PO PRN (12:48)
[2020-12-13] MEDS: LORAZEPAM 2MG/ML CPJ IV PRN (16:22)
[2020-12-14] VITALS (12 sets, daily range): BP systolic 92–131; BP diastolic 54–80
[2020-12-14] MEDS: IPRATROPIUM/ALBUTEROL 0.5-3(2.5)MG/3ML NEB HHN SCH ×4 (02:20→22:10)
[2020-12-14] MEDS: ENOXAPARIN 30MG/0.3ML SYR SUBCUT SCH ×2 (05:45→18:48)
[2020-12-14] MEDS: CHLORDIAZEPOXIDE 5 MG CAPSULE PO SCH (05:45)
[2020-12-14] MEDS: CHLORDIAZEPOXIDE 10MG CAPSULE PO SCH (05:45)
[2020-12-14] MEDS: POLYETHYLENE GLYCOL 3350 (17GM) 1 DOSE PACK PO SCH (08:43)
[2020-12-14] MEDS: FAMOTIDINE 20MG TABLET PO SCH ×2 (08:43→20:23)
[2020-12-14] MEDS: FOLIC ACID 1MG TABLET PO SCH (08:43)
[2020-12-14] MEDS: PREDNISONE 20MG TABLET PO SCH ×2 (08:43→18:48)
[2020-12-14] MEDS: METOPROLOL TARTRATE 50MG TABLET PO SCH ×2 (08:44→20:23)
[2020-12-14] MEDS: FUROSEMIDE 40MG/4ML VIAL IVP SCH (08:44)
[2020-12-14] MEDS: MULTIVITAMINS,THER W-MINERALS TABLET PO SCH (08:44)
[2020-12-14] MEDS: LORAZEPAM 2MG/ML CPJ IV PRN ×3 (08:57→20:23)
[2020-12-14 09:50] LABS: PHOSPHORUS 5.4 mg/dL (2.5-4.9)
[2020-12-14 10:50] LABS: HEMATOCRIT. 44.6 % (42.0-52.0); HEMOGLOBIN. 14.3 g/dL (14.0-18.0); MEAN CORPUSCULAR HEMOGLOBIN 29.6 pg (28.0-32.0); MEAN CORPUSCULAR VOLUME 92.6 fL (80.0-94.0); MEAN PLATELET VOLUME 9.3 fl (7.4-10.4); PLATELET 114 x1000/uL (130-400); RED BLOOD CELL COUNT 4.81 mill/uL (4.7-6.1); RED CELL DISTRIBUTION WIDTH 18.2 % (11.6-14.6)
[2020-12-14 12:59] LABS: PLATELET ESTIMATE DECREASED
[2020-12-14] MEDS ORDERED: SODIUM POLYSTYRENE SULFONATE 15 G/60 ML BOT PO SCH (15:00)
[2020-12-14] MEDS: HALOPERIDOL LACTATE 5MG/ML VIAL IM PRN (21:00)
[2020-12-15] VITALS: BP 133/91
[2020-12-15] MEDS: LORAZEPAM 2MG/ML CPJ IV PRN ×4 (00:27→22:30)
[2020-12-15] MEDS: IPRATROPIUM/ALBUTEROL 0.5-3(2.5)MG/3ML NEB HHN SCH ×2 (02:15→13:11)
[2020-12-15 04:00] VITALS: BP 130/80
[2020-12-15] MEDS: ENOXAPARIN 30MG/0.3ML SYR SUBCUT SCH (05:00)
[2020-12-15] MEDS: HALOPERIDOL LACTATE 5MG/ML VIAL IM PRN ×2 (05:00→17:09)
[2020-12-15 05:30] LABS: PHOSPHORUS 3.5 mg/dL (2.5-4.9)
[2020-12-15 05:53] LABS: HEMOGLOBIN. 14.4 g/dL (14.0-18.0); MEAN CORPUSCULAR HEMOGLOBIN 29.4 pg (28.0-32.0); PLATELET 79 x1000/uL (130-400); RED BLOOD CELL COUNT 4.88 mill/uL (4.7-6.1)
[2020-12-15 08:00] VITALS: BP 105/85
[2020-12-15] MEDS: METOPROLOL TARTRATE 50MG TABLET PO SCH ×2 (09:00→21:27)
[2020-12-15] MEDS: MULTIVITAMINS,THER W-MINERALS TABLET PO SCH (09:49)
[2020-12-15] MEDS: PREDNISONE 20MG TABLET PO SCH ×2 (09:49→17:08)
[2020-12-15] MEDS: FOLIC ACID 1MG TABLET PO SCH (09:49)
[2020-12-15] MEDS: POLYETHYLENE GLYCOL 3350 (17GM) 1 DOSE PACK PO SCH (09:49)
[2020-12-15] MEDS: FUROSEMIDE 40MG/4ML VIAL IVP SCH (09:49)
[2020-12-15] MEDS: FAMOTIDINE 20MG TABLET PO SCH ×2 (10:39→21:27)
[2020-12-15 11:08] LABS: PLATELET ESTIMATE DECREASED
[2020-12-15 12:00] VITALS: BP 117/80
[2020-12-15 16:00] VITALS: BP 136/91
[2020-12-15] MEDS: ACETAMINOPHEN 325MG TABLET PO PRN (17:08)
[2020-12-15 20:00] VITALS: BP 139/89
[2020-12-16] VITALS: BP 119/90
[2020-12-16] MEDS: HALOPERIDOL LACTATE 5MG/ML VIAL IM PRN ×3 (00:39→21:30)
[2020-12-16] MEDS: ACETAMINOPHEN 325MG TABLET PO PRN (04:39)
[2020-12-16] MEDS: LORAZEPAM 2MG/ML CPJ IV PRN ×2 (04:39→18:13)
[2020-12-16 07:36] LABS: HEMATOCRIT. 42.6 % (42.0-52.0); HEMOGLOBIN. 13.8 g/dL (14.0-18.0); MEAN CORPUSCULAR HEMOGLOBIN 29.7 pg (28.0-32.0); MEAN CORPUSCULAR VOLUME 91.9 fL (80.0-94.0); MEAN PLATELET VOLUME 8.9 fl (7.4-10.4); PLATELET 92 x1000/uL (130-400); RED BLOOD CELL COUNT 4.63 mill/uL (4.7-6.1)
[2020-12-16] MEDS: IPRATROPIUM/ALBUTEROL 0.5-3(2.5)MG/3ML NEB HHN SCH ×3 (07:44→22:06)
[2020-12-16 08:00] VITALS: BP 115/93
[2020-12-16 08:15] LABS: CHLORIDE 102 mEq/L (98-107)
[2020-12-16 08:21] LABS: PHOSPHORUS 2.9 mg/dL (2.5-4.9)
[2020-12-16] MEDS: FAMOTIDINE 20MG TABLET PO SCH ×2 (09:41→21:30)
[2020-12-16] MEDS: FOLIC ACID 1MG TABLET PO SCH (09:41)
[2020-12-16] MEDS: POLYETHYLENE GLYCOL 3350 (17GM) 1 DOSE PACK PO SCH (09:41)
[2020-12-16] MEDS: FUROSEMIDE 40MG/4ML VIAL IVP SCH (09:41)
[2020-12-16] MEDS: MULTIVITAMINS,THER W-MINERALS TABLET PO SCH (09:41)
[2020-12-16] MEDS: METOPROLOL TARTRATE 50MG TABLET PO SCH ×2 (09:42→21:30)
[2020-12-16] MEDS: PREDNISONE 20MG TABLET PO SCH ×2 (09:50→18:07)
[2020-12-16 12:00] VITALS: BP 117/79
[2020-12-16 12:38] LABS: BG BASE EXCESS 17.7 mmol/L (-2.0-2.0); BG DEOXYHEMOGLOBIN 1.4 % (0.0-5.0); BG FRACTION INSPIRED OXYGEN 36; BG HCO3 ACT 46.2 mmol/L (22.0-26.0); BG METHEMOGLOBIN 0.2 % (0.0-1.5); BG OXYGEN SATURATION 98.6 % (92.0-98.5); BG OXYHEMOGLOBIN 97.4 % (94.0-97.0); BG PH 7.437 (7.350-7.450); BG PO2 123.1 mmHg (75.0-100.0); BG SAMPLE SITE RIGHT RADIAL; BG TOTAL HEMOGLOBIN 15.1 g/dL (12.0-18.0); BG VENT MODE NASAL CANNULA
[2020-12-16 16:00] VITALS: BP 102/74
[2020-12-16] MEDS: ENOXAPARIN 30MG/0.3ML SYR SUBCUT SCH (18:00)
[2020-12-16 20:00] VITALS: BP 130/100
[2020-12-17] VITALS: BP_SYST 117; BP_SYST 136; BP_DIAS 65; BP_DIAS 94
[2020-12-17] MEDS: LORAZEPAM 2MG/ML CPJ IV PRN (01:59)
[2020-12-17 04:00] VITALS: BP 126/92
[2020-12-17] MEDS: ENOXAPARIN 30MG/0.3ML SYR SUBCUT SCH ×2 (05:23→18:00)
[2020-12-17 06:40] LABS: HEMATOCRIT. 44.8 % (42.0-52.0); HEMOGLOBIN. 14.5 g/dL (14.0-18.0); MEAN CORPUSCULAR HEMOGLOBIN 29.7 pg (28.0-32.0); MEAN CORPUSCULAR VOLUME 91.7 fL (80.0-94.0); MEAN PLATELET VOLUME 9.3 fl (7.4-10.4); PLATELET 98 x1000/uL (130-400); RED BLOOD CELL COUNT 4.88 mill/uL (4.7-6.1); RED CELL DISTRIBUTION WIDTH 18.1 % (11.6-14.6)
[2020-12-17 07:46] LABS: CHLORIDE 100 mEq/L (98-107)
[2020-12-17 07:51] LABS: PHOSPHORUS 2.2 mg/dL (2.5-4.9)
[2020-12-17 08:00] VITALS: BP 122/89
[2020-12-17] MEDS: FUROSEMIDE 40MG/4ML VIAL IVP SCH (09:01)
[2020-12-17] MEDS: MULTIVITAMINS,THER W-MINERALS TABLET PO SCH (09:01)
[2020-12-17] MEDS: METOPROLOL TARTRATE 50MG TABLET PO SCH ×2 (09:01→21:42)
[2020-12-17] MEDS: POLYETHYLENE GLYCOL 3350 (17GM) 1 DOSE PACK PO SCH (09:01)
[2020-12-17] MEDS: FOLIC ACID 1MG TABLET PO SCH (09:02)
[2020-12-17] MEDS: PREDNISONE 20MG TABLET PO SCH ×2 (09:02→18:38)
[2020-12-17] MEDS: FAMOTIDINE 20MG TABLET PO SCH ×2 (09:02→21:41)
[2020-12-17] MEDS: IPRATROPIUM/ALBUTEROL 0.5-3(2.5)MG/3ML NEB HHN SCH ×2 (10:15→20:21)
[2020-12-17 12:00] VITALS: BP 126/85
[2020-12-17] MEDS: HALOPERIDOL LACTATE 5MG/ML VIAL IM PRN ×2 (13:14→23:17)
[2020-12-17 16:00] VITALS: BP 110/86
[2020-12-17 18:22] LABS: PLATELET ESTIMATE DECREASED
[2020-12-17 20:00] VITALS: BP 118/80
[2020-12-17 21:49] LABS: PLATELET ESTIMATE DECREASED
[2020-12-18 04:00] VITALS: BP 127/92
[2020-12-18] MEDS: ENOXAPARIN 30MG/0.3ML SYR SUBCUT SCH ×2 (06:00→20:32)
[2020-12-18 07:03] LABS: HEMATOCRIT. 42.6 % (42.0-52.0); HEMOGLOBIN. 13.8 g/dL (14.0-18.0); MEAN CORPUSCULAR HEMOGLOBIN 29.6 pg (28.0-32.0); MEAN CORPUSCULAR VOLUME 91.4 fL (80.0-94.0); MEAN PLATELET VOLUME 9.2 fl (7.4-10.4); PLATELET 88 x1000/uL (130-400); RED BLOOD CELL COUNT 4.66 mill/uL (4.7-6.1); RED CELL DISTRIBUTION WIDTH 17.8 % (11.6-14.6)
[2020-12-18 07:12] LABS: CHLORIDE 99 mEq/L (98-107)
[2020-12-18 07:19] LABS: PHOSPHORUS 2.6 mg/dL (2.5-4.9)
[2020-12-18 08:00] VITALS: BP 126/96
[2020-12-18] MEDS: IPRATROPIUM/ALBUTEROL 0.5-3(2.5)MG/3ML NEB HHN SCH ×2 (09:15→19:56)
[2020-12-18] MEDS: FUROSEMIDE 40MG/4ML VIAL IVP SCH (09:23)
[2020-12-18] MEDS: MULTIVITAMINS,THER W-MINERALS TABLET PO SCH (09:23)
[2020-12-18] MEDS: PREDNISONE 20MG TABLET PO SCH (09:23)
[2020-12-18] MEDS: FOLIC ACID 1MG TABLET PO SCH (09:23)
[2020-12-18] MEDS: FAMOTIDINE 20MG TABLET PO SCH ×2 (09:23→21:16)
[2020-12-18] MEDS: POLYETHYLENE GLYCOL 3350 (17GM) 1 DOSE PACK PO SCH (09:23)
[2020-12-18] MEDS: METOPROLOL TARTRATE 50MG TABLET PO SCH ×2 (09:23→21:17)
[2020-12-18] MEDS: LORAZEPAM 2MG/ML CPJ IV PRN (10:57)
[2020-12-18 12:00] VITALS: BP 120/84
[2020-12-18 13:39] LABS: PLATELET ESTIMATE DECREASED
[2020-12-18 16:00] VITALS: BP 113/81
[2020-12-18 20:00] VITALS: BP_SYST 112; BP_SYST 135; BP_DIAS 76; BP_DIAS 85
[2020-12-19] VITALS: BP 112/83
[2020-12-19] MEDS: LORAZEPAM 2MG/ML CPJ IV PRN (00:58)
[2020-12-19] MEDS: IPRATROPIUM/ALBUTEROL 0.5-3(2.5)MG/3ML NEB HHN SCH ×4 (01:59→20:01)
[2020-12-19 04:32] VITALS: BP 118/78
[2020-12-19] MEDS: HALOPERIDOL LACTATE 5MG/ML VIAL IM PRN (04:46)
[2020-12-19] MEDS: ENOXAPARIN 30MG/0.3ML SYR SUBCUT SCH (05:17)
[2020-12-19 08:00] VITALS: BP 110/80
[2020-12-19] MEDS ORDERED: PREDNISONE 20MG TABLET PO SCH (09:00)
[2020-12-19 09:43] LABS: HEMATOCRIT. 44.7 % (42.0-52.0); HEMOGLOBIN. 14.4 g/dL (14.0-18.0); MEAN CORPUSCULAR HEMOGLOBIN 29.4 pg (28.0-32.0); MEAN CORPUSCULAR VOLUME 91.3 fL (80.0-94.0); PLATELET 85 x1000/uL (130-400); RED CELL DISTRIBUTION WIDTH 18.4 % (11.6-14.6)
[2020-12-19] MEDS: MULTIVITAMINS,THER W-MINERALS TABLET PO SCH (10:05)
[2020-12-19] MEDS: METOPROLOL TARTRATE 50MG TABLET PO SCH ×2 (10:05→22:07)
[2020-12-19] MEDS: FOLIC ACID 1MG TABLET PO SCH (10:06)
[2020-12-19] MEDS: FUROSEMIDE 40MG/4ML VIAL IVP SCH (10:06)
[2020-12-19] MEDS: POLYETHYLENE GLYCOL 3350 (17GM) 1 DOSE PACK PO SCH (10:06)
[2020-12-19 10:15] LABS: CHLORIDE 98 mEq/L (98-107)
[2020-12-19 12:00] VITALS: BP 105/82
[2020-12-19] MEDS: FAMOTIDINE 20MG TABLET PO SCH (12:48)
[2020-12-19 14:51] LABS: PLATELET ESTIMATE DECREASED
[2020-12-19 16:00] VITALS: BP 106/78
[2020-12-19] MEDS: ENOXAPARIN 40MG/0.4ML SYR SUBCUT SCH (16:56)
[2020-12-19 20:00] VITALS: BP 140/84
[2020-12-20] VITALS: BP 126/76
[2020-12-20] MEDS: IPRATROPIUM/ALBUTEROL 0.5-3(2.5)MG/3ML NEB HHN SCH ×3 (00:03→21:38)
[2020-12-20] MEDS: ACETAMINOPHEN 325MG TABLET PO PRN (00:36)
[2020-12-20 04:00] VITALS: BP 145/85
[2020-12-20 07:02] LABS: HEMATOCRIT. 45.6 % (42.0-52.0); HEMOGLOBIN. 14.9 g/dL (14.0-18.0); MEAN CORPUSCULAR HEMOGLOBIN 29.7 pg (28.0-32.0); MEAN CORPUSCULAR VOLUME 90.5 fL (80.0-94.0); MEAN PLATELET VOLUME 10.3 fl (7.4-10.4); PLATELET 88 x1000/uL (130-400); RED BLOOD CELL COUNT 5.03 mill/uL (4.7-6.1); RED CELL DISTRIBUTION WIDTH 18.2 % (11.6-14.6)
[2020-12-20 07:32] LABS: PHOSPHORUS 2.7 mg/dL (2.5-4.9)
[2020-12-20 08:00] VITALS: BP 113/84
[2020-12-20] MEDS: POLYETHYLENE GLYCOL 3350 (17GM) 1 DOSE PACK PO SCH (08:19)
[2020-12-20] MEDS: FUROSEMIDE 40MG/4ML VIAL IVP SCH (08:19)
[2020-12-20] MEDS: MULTIVITAMINS,THER W-MINERALS TABLET PO SCH (08:19)
[2020-12-20] MEDS: FOLIC ACID 1MG TABLET PO SCH (08:19)
[2020-12-20] MEDS: METOPROLOL TARTRATE 50MG TABLET PO SCH ×2 (08:19→21:25)
[2020-12-20 12:00] VITALS: BP 105/75
[2020-12-20 12:53] LABS: PLATELET ESTIMATE DECREASED
[2020-12-20 16:00] VITALS: BP 113/84
[2020-12-20] MEDS: ENOXAPARIN 40MG/0.4ML SYR SUBCUT SCH (17:00)
[2020-12-20 20:00] VITALS: BP 137/85
[2020-12-20] MEDS: HALOPERIDOL LACTATE 5MG/ML VIAL IM PRN (21:26)
[2020-12-21] VITALS: BP 111/78
[2020-12-21 04:00] VITALS: BP 142/76
[2020-12-21 08:00] VITALS: BP 140/52
[2020-12-21 08:22] LABS: BASOPHILS % 0.1 % (0.0-2.0); EOSINOPHILS % 0.9 % (0.0-5.0); HEMOGLOBIN. 13.9 g/dL (14.0-18.0); LYMPHOCYTES % 9.1 % (20.0-50.0); MEAN CORPUSCULAR VOLUME 93.1 fL (80.0-94.0); MEAN PLATELET VOLUME 10.3 fl (7.4-10.4); NEUTROPHILS % 79.9 % (40.0-76.0); PLATELET 69 x1000/uL (130-400); RED BLOOD CELL COUNT 4.62 mill/uL (4.7-6.1); RED CELL DISTRIBUTION WIDTH 18.4 % (11.6-14.6)
[2020-12-21 09:04] LABS: CHLORIDE 97 mEq/L (98-107)
[2020-12-21 09:11] LABS: PHOSPHORUS 2.5 mg/dL (2.5-4.9)
[2020-12-21] MEDS: IPRATROPIUM/ALBUTEROL 0.5-3(2.5)MG/3ML NEB HHN SCH ×4 (09:27→18:00)
[2020-12-21] MEDS: POLYETHYLENE GLYCOL 3350 (17GM) 1 DOSE PACK PO SCH (09:46)
[2020-12-21] MEDS: FUROSEMIDE 40MG TABLET PO SCH (09:46)
[2020-12-21] MEDS: MULTIVITAMINS,THER W-MINERALS TABLET PO SCH (09:47)
[2020-12-21] MEDS: METOPROLOL TARTRATE 50MG TABLET PO SCH ×2 (09:47→21:25)
[2020-12-21] MEDS: FOLIC ACID 1MG TABLET PO SCH (09:47)
[2020-12-21 12:00] VITALS: BP 107/74
[2020-12-21 16:00] VITALS: BP 104/76
[2020-12-21] MEDS: ACETAMINOPHEN 325MG TABLET PO PRN (18:14)
[2020-12-21 20:00] VITALS: BP 114/87
[2020-12-22] VITALS: BP 112/77
[2020-12-22] MEDS: HALOPERIDOL LACTATE 5MG/ML VIAL IM PRN ×2 (01:39→16:32)
[2020-12-22 04:00] VITALS: BP 106/75
[2020-12-22 06:13] LABS: BASOPHILS % 0.3 % (0.0-2.0); EOSINOPHILS % 1.6 % (0.0-5.0); HEMATOCRIT. 46.7 % (42.0-52.0); HEMOGLOBIN. 15.4 g/dL (14.0-18.0); LYMPHOCYTES % 10.6 % (20.0-50.0); MEAN CORPUSCULAR HEMOGLOBIN 30.1 pg (28.0-32.0); MEAN CORPUSCULAR VOLUME 91.3 fL (80.0-94.0); MEAN PLATELET VOLUME 10.1 fl (7.4-10.4); MONOCYTES % 7.3 % (2.0-8.0); NEUTROPHILS % 80.2 % (40.0-76.0); PLATELET 82 x1000/uL (130-400); RED BLOOD CELL COUNT 5.12 mill/uL (4.7-6.1); RED CELL DISTRIBUTION WIDTH 18.6 % (11.6-14.6)
[2020-12-22 06:44] LABS: CHLORIDE 99 mEq/L (98-107)
[2020-12-22 08:00] VITALS: BP 114/74
[2020-12-22] MEDS: IPRATROPIUM/ALBUTEROL 0.5-3(2.5)MG/3ML NEB HHN SCH ×4 (08:17→21:41)
[2020-12-22] MEDS: POLYETHYLENE GLYCOL 3350 (17GM) 1 DOSE PACK PO SCH (09:50)
[2020-12-22] MEDS: FOLIC ACID 1MG TABLET PO SCH (09:50)
[2020-12-22] MEDS: MULTIVITAMINS,THER W-MINERALS TABLET PO SCH (09:51)
[2020-12-22] MEDS: METOPROLOL TARTRATE 50MG TABLET PO SCH ×2 (09:51→22:03)
[2020-12-22] MEDS: FUROSEMIDE 40MG TABLET PO SCH (09:51)
[2020-12-22 12:00] VITALS: BP 109/67
[2020-12-22 14:09] LABS: PHOSPHORUS 2.1 mg/dL (2.5-4.9)
[2020-12-22 16:00] VITALS: BP 106/76
[2020-12-22] MEDS: POTASSIUM-SODIUM PHOSPHATE POWDER PACKET PO SCH (16:23)
[2020-12-22 20:00] VITALS: BP 145/80
[2020-12-23] VITALS: BP 135/61
[2020-12-23 04:00] VITALS: BP 137/91
[2020-12-23 07:17] LABS: BASOPHILS % 0.4 % (0.0-2.0); CHLORIDE 101 mEq/L (98-107); EOSINOPHILS % 1.4 % (0.0-5.0); HEMATOCRIT. 42.9 % (42.0-52.0); HEMOGLOBIN. 14.2 g/dL (14.0-18.0); LYMPHOCYTES % 7.7 % (20.0-50.0); MEAN CORPUSCULAR VOLUME 90.9 fL (80.0-94.0); MONOCYTES % 5.4 % (2.0-8.0); NEUTROPHILS % 85.1 % (40.0-76.0); RED BLOOD CELL COUNT 4.72 mill/uL (4.7-6.1); RED CELL DISTRIBUTION WIDTH 18.4 % (11.6-14.6)
[2020-12-23 07:22] LABS: PHOSPHORUS 2.5 mg/dL (2.5-4.9)
[2020-12-23 08:00] VITALS: BP 111/83
[2020-12-23] MEDS: POLYETHYLENE GLYCOL 3350 (17GM) 1 DOSE PACK PO SCH (08:35)
[2020-12-23] MEDS: POTASSIUM-SODIUM PHOSPHATE POWDER PACKET PO SCH ×2 (08:35→16:41)
[2020-12-23] MEDS: FOLIC ACID 1MG TABLET PO SCH (08:36)
[2020-12-23] MEDS: FUROSEMIDE 40MG TABLET PO SCH (08:36)
[2020-12-23] MEDS: MULTIVITAMINS,THER W-MINERALS TABLET PO SCH (08:36)
[2020-12-23] MEDS: METOPROLOL TARTRATE 50MG TABLET PO SCH ×2 (08:36→20:46)
[2020-12-23] MEDS: IPRATROPIUM/ALBUTEROL 0.5-3(2.5)MG/3ML NEB HHN SCH ×2 (08:44→13:52)
[2020-12-23 11:55] LABS: BG BASE EXCESS 8.5 mmol/L (-2.0-2.0); BG CARBOXYHEMOGLOBIN 1.5 % (0.5-1.5); BG DEOXYHEMOGLOBIN 16.9 % (0.0-5.0); BG FRACTION INSPIRED OXYGEN 28; BG METHEMOGLOBIN 0.2 % (0.0-1.5); BG OXYGEN SATURATION 82.8 % (92.0-98.5); BG OXYHEMOGLOBIN 81.4 % (94.0-97.0); BG PCO2 55.5 mmHg (35.0-45.0); BG PH 7.418 (7.350-7.450); BG PO2 44.6 mmHg (75.0-100.0); BG SAMPLE SITE RIGHT RADIAL; BG TOTAL HEMOGLOBIN 15.2 g/dL (12.0-18.0); BG VENT MODE NASAL CANNULA
[2020-12-23 12:00] VITALS: BP 96/72
[2020-12-23 16:00] VITALS: BP 95/68
[2020-12-23 16:40] LABS: MEAN PLATELET VOLUME 10.1 fl (7.4-10.4); PLATELET 73 x1000/uL (130-400)
[2020-12-23] MEDS: ENOXAPARIN 40MG/0.4ML SYR SUBCUT SCH (16:41)
[2020-12-23 16:48] LABS: BG CARBOXYHEMOGLOBIN 1.6 % (0.5-1.5); BG DEOXYHEMOGLOBIN 11.2 % (0.0-5.0); BG FRACTION INSPIRED OXYGEN 21; BG HCO3 ACT 30.5 mmol/L (22.0-26.0); BG METHEMOGLOBIN 0.2 % (0.0-1.5); BG OXYGEN SATURATION 88.6 % (92.0-98.5); BG PCO2 43.1 mmHg (35.0-45.0); BG PH 7.467 (7.350-7.450); BG PO2 50.1 mmHg (75.0-100.0); BG SAMPLE SITE RIGHT RADIAL; BG TOTAL HEMOGLOBIN 14.7 g/dL (12.0-18.0); BG VENT MODE ROOM AIR
[2020-12-23 20:00] VITALS: BP 97/61
[2020-12-24] VITALS: BP 112/75
[2020-12-24] MEDS: GUAIFENESIN 200MG/10ML SUGAR FREE UDC PO PRN (00:15)
[2020-12-24 04:00] VITALS: BP 114/80
[2020-12-24 06:17] LABS: BASOPHILS % 0.7 % (0.0-2.0); EOSINOPHILS % 1.5 % (0.0-5.0); HEMATOCRIT. 42.3 % (42.0-52.0); HEMOGLOBIN. 13.9 g/dL (14.0-18.0); LYMPHOCYTES % 9.4 % (20.0-50.0); MEAN CORPUSCULAR HEMOGLOBIN 30.1 pg (28.0-32.0); MEAN CORPUSCULAR VOLUME 91.8 fL (80.0-94.0); MEAN PLATELET VOLUME 10.8 fl (7.4-10.4); MONOCYTES % 7.9 % (2.0-8.0); NEUTROPHILS % 80.5 % (40.0-76.0); PLATELET 78 x1000/uL (130-400); RED BLOOD CELL COUNT 4.61 mill/uL (4.7-6.1); RED CELL DISTRIBUTION WIDTH 18.7 % (11.6-14.6)
[2020-12-24 06:30] LABS: CHLORIDE 100 mEq/L (98-107)
[2020-12-24 06:53] LABS: PHOSPHORUS 2.5 mg/dL (2.5-4.9)
[2020-12-24 08:00] VITALS: BP 94/65
[2020-12-24] MEDS: FUROSEMIDE 40MG TABLET PO SCH (08:51)
[2020-12-24] MEDS: METOPROLOL TARTRATE 50MG TABLET PO SCH (08:51)
[2020-12-24] MEDS: MULTIVITAMINS,THER W-MINERALS TABLET PO SCH (08:51)
[2020-12-24] MEDS: FOLIC ACID 1MG TABLET PO SCH (08:51)
[2020-12-24] MEDS: POLYETHYLENE GLYCOL 3350 (17GM) 1 DOSE PACK PO SCH (08:52)
[2020-12-24] MEDS: POTASSIUM-SODIUM PHOSPHATE POWDER PACKET PO SCH (08:52)
[2020-12-24] MEDS: IPRATROPIUM/ALBUTEROL 0.5-3(2.5)MG/3ML NEB HHN SCH ×2 (10:26→13:49)
[2020-12-24 12:00] VITALS: BP 110/72
[2020-12-24] MEDS ORDERED: METO-539 PO (12:36)
[2020-12-24] MEDS ORDERED: FOLI-43 PO (12:36)
[2020-12-24] MEDS ORDERED: FURO40TA5 PO (12:36)
[2020-12-24 14:52] LABS: BG BASE EXCESS 4.9 mmol/L (-2.0-2.0); BG CARBOXYHEMOGLOBIN 1.2 % (0.5-1.5); BG DEOXYHEMOGLOBIN 3.5 % (0.0-5.0); BG HCO3 ACT 28.7 mmol/L (22.0-26.0); BG METHEMOGLOBIN 0.1 % (0.0-1.5); BG OXYGEN SATURATION 96.5 % (92.0-98.5); BG OXYHEMOGLOBIN 95.2 % (94.0-97.0); BG PCO2 39.2 mmHg (35.0-45.0); BG PH 7.482 (7.350-7.450); BG PO2 77.4 mmHg (75.0-100.0); BG SAMPLE SITE RIGHT RADIAL; BG TOTAL HEMOGLOBIN 14.5 g/dL (12.0-18.0); BG VENT MODE ROOM AIR
[2020-12-24 15:16] VITALS: BP 110/72
[2020-12-24] MEDS ORDERED: FUROSEMIDE 40MG TABLET PO SCH (18:00)
== END 2020-12-24 16:13 | disposition home or self-care (01) | DRG 194 ==
LOC: ER 00:38 → MICUSO 02:48 → EDBEDREQSVC 02:50 → EDBEDREQTM 02:50 → EDBEDREQ 02:50 → EDBEDREQSVC 15:19 → 6WST 19:32 → 3WST 12-12 12:10 → 7EST 12-14 15:07
PROVIDERS: ADMIT Internal Medicine; ATTEND Internal Medicine
PROC: 5A09357 Assistance with Respiratory Ventilation, Less than 24 Consecutive Hours, Continuous Positive Airway Pressure (ICD-10-PCS; 2020-12-07)
PROC: 0HBRXZZ Excision of Toe Nail, External Approach (ICD-10-PCS; principal; 2020-12-13)
PROC: 0HBRXZZ Excision of Toe Nail, External Approach (ICD-10-PCS; 2020-12-13)
PROC: 0HBRXZZ Excision of Toe Nail, External Approach (ICD-10-PCS; 2020-12-13)
PROC: 0HBRXZZ Excision of Toe Nail, External Approach (ICD-10-PCS; 2020-12-13)
PROC: 0HBRXZZ Excision of Toe Nail, External Approach (ICD-10-PCS; 2020-12-13)
PROC: 0HBRXZZ Excision of Toe Nail, External Approach (ICD-10-PCS; 2020-12-13)
PROC: 0HBRXZZ Excision of Toe Nail, External Approach (ICD-10-PCS; 2020-12-13)
PROC: 0HBRXZZ Excision of Toe Nail, External Approach (ICD-10-PCS; 2020-12-13)
PROC: 0HBRXZZ Excision of Toe Nail, External Approach (ICD-10-PCS; 2020-12-13)
PROC: 0HBRXZZ Excision of Toe Nail, External Approach (ICD-10-PCS; 2020-12-13)
PROC: 02HV33Z Insertion of Infusion Device into Superior Vena Cava, Percutaneous Approach (ICD-10-PCS; 2020-12-17)
PROC: B548ZZA Ultrasonography of Superior Vena Cava, Guidance (ICD-10-PCS; 2020-12-17)
PROC: 4A10X4Z Monitoring of Central Nervous Electrical Activity, External Approach (ICD-10-PCS; 2020-12-19)
DX: I13.0 Hypertensive heart and chronic kidney disease with heart failure and stage 1 through stage 4 chronic kidney disease, or unspecified chronic kidney disease (principal); I21.4 Non-ST elevation (NSTEMI) myocardial infarction; J96.01 Acute respiratory failure with hypoxia; J96.02 Acute respiratory failure with hypercapnia; G92 Toxic encephalopathy; E44.0 Moderate protein-calorie malnutrition; E87.2 Acidosis; D68.9 Coagulation defect, unspecified; I47.2 Ventricular tachycardia; J44.1 Chronic obstructive pulmonary disease with (acute) exacerbation; I50.23 Acute on chronic systolic (congestive) heart failure; I42.9 Cardiomyopathy, unspecified; I47.1 Supraventricular tachycardia; N17.9 Acute kidney failure, unspecified; D72.821 Monocytosis (symptomatic); E66.9 Obesity, unspecified; E87.6 Hypokalemia; F17.210 Nicotine dependence, cigarettes, uncomplicated; G62.9 Polyneuropathy, unspecified; Z20.822 Contact with and (suspected) exposure to COVID-19; E87.5 Hyperkalemia; F15.129 Other stimulant abuse with intoxication, unspecified; N18.2 Chronic kidney disease, stage 2 (mild); R26.89 Other abnormalities of gait and mobility; R74.01 Elevation of levels of liver transaminase levels; I49.3 Ventricular premature depolarization; F10.139 Alcohol abuse with withdrawal, unspecified; K74.60 Unspecified cirrhosis of liver; I73.9 Peripheral vascular disease, unspecified; L60.2 Onychogryphosis; S90.822A Blister (nonthermal), left foot, initial encounter; X58.XXXA Exposure to other specified factors, initial encounter; Z59.0 Homelessness; Y93.89 Activity, other specified; Y92.89 Other specified places as the place of occurrence of the external cause; Z91.19 Patient's noncompliance with other medical treatment and regimen; Y99.8 Other external cause status; Z78.1 Physical restraint status; Z82.49 Family history of ischemic heart disease and other diseases of the circulatory system; Z91.11 Patient's noncompliance with dietary regimen; Z88.8 Allergy status to other drugs, medicaments and biological substances; Z68.28 Body mass index [BMI] 28.0-28.9, adult; Z71.3 Dietary counseling and surveillance; Z71.6 Tobacco abuse counseling; R80.9 Proteinuria, unspecified; J90 Pleural effusion, not elsewhere classified
CPT/HCPCS: 36415; 36600; 71045; 76770; 76937; 80048; 80053; 80061; 80305; 81003; 82140; 82375; 82550; 82607; 82746; 82805; 83036; 83605; 83735; 83880; 84100; 84132; 84145; 84443; 84484; 85025; 87426; 93005; 93306; 93923; 94640; 94660; 97162; 99291; C1725; C1893; J1630; J1650; J1940; J1956; J2060; J2270; J2405; J2920; J2930; J3370; J3411; J3475; J3490; J7060; J7512